=== PATIENT | female | born 1965 | race Caucasian/White ===

== ENCOUNTER → 2017-08-14 | Outpatient (CLI) | payer BC ==
[~2017-08-14] MED LIST: CELEXA20 MG PO; DIAZEPAM2 MG PO; ZOLOFT50 MG PO
== END | disposition home or self-care (01) ==
LOC: CDC 14:13
DX: Z01.810 Encounter for preprocedural cardiovascular examination (principal); D05.11 Intraductal carcinoma in situ of right breast
CPT/HCPCS: 93000

== ENCOUNTER 2017-09-06 05:35 | Day surgery (SDC) | payer BC ==
[~2017-09-06] VITALS: Ht 157.5 cm; Wt 46.3 kg
[2017-09-06 06:56] VITALS: BP 97/55
[2017-09-06 18:04] VITALS: BP 98/53
[2017-09-06 19:30] VITALS: BP 109/52
[2017-09-06 23:53] VITALS: BP 106/58
[2017-09-07 03:53] VITALS: BP 120/54
[2017-09-07 07:00] VITALS: BP 113/58
[2017-09-07 11:52] VITALS: BP 104/52
== END 2017-09-07 13:40 | disposition home or self-care (01) ==
LOC: SDC 05:35 → NUC 07:00 → 2EAST 15:15 → 2SOUTH 15:15 → ENRESERV 15:44 → 2EAST 18:03
PROC: 07B50ZX Excision of Right Axillary Lymphatic, Open Approach, Diagnostic (ICD-10-PCS; principal; 2017-09-06)
PROC: 0HHV0NZ Insertion of Tissue Expander into Bilateral Breast, Open Approach (ICD-10-PCS; principal; 2017-09-06)
PROC: 0HTV0ZZ Resection of Bilateral Breast, Open Approach (ICD-10-PCS; principal; 2017-09-06)
DX: C50.911 Malignant neoplasm of unspecified site of right female breast (principal); F41.8 Other specified anxiety disorders; M81.0 Age-related osteoporosis without current pathological fracture; Z88.2 Allergy status to sulfonamides; F17.210 Nicotine dependence, cigarettes, uncomplicated
CPT/HCPCS: 78195; 78999; A9541; G0378; J0131; J0690; J1100; J1170; J1885; J2405; J2710; J3010; J7643; S0020